=== PATIENT | male | born 1965 | race Caucasian/White ===

== ENCOUNTER 2019-11-20 12:08 | Emergency (ER) | payer MEDICARE ==
[~2019-11-20] VITALS: Ht 180.3 cm; Wt 94.4 kg
[2019-11-20] MEDS ORDERED: SODIUM CHLORIDE 0.9% 1,000ML IVBOLUS ONE (12:30)
[2019-11-20] MEDS ORDERED: THIAMINE 100 MG in SODIUM CHLORIDE 0.9% 50 ML IVPB ONE (12:30)
[2019-11-20] MEDS ORDERED: SODIUM CHLORIDE FLUSH 10ML SYR IVF ONE (12:30)
--- NOTE | 2019-11-20 12:33 | NUR ---
SEE TRIAGE. PT PLACED ON ALL ROOM MONITORING, EKG COMPLETED ON ARRIVAL TO ED. CALL LIGHT WITHIN REACH. LUIS A MONTAÑO IN TO SEE PT.
[2019-11-20 12:40] LABS: BASOPHILS # (AUTO) 0.07 x10^3/uL (0-0.1); BASOPHILS % (AUTO) 1 % (0-1); EOSINOPHILS # (AUTO) 0.04 x10^3/uL (0-0.4); EOSINOPHILS % (AUTO) 1 % (1-7); LYMPHOCYTES # (AUTO) 1.41 x10^3/uL (1-3.4); LYMPHOCYTES % (AUTO) 17 % (22-44); MD NO; MEAN CORPUSCULAR HEMOGLOBIN 32.8 pg (27.5-34.5); MEAN CORPUSCULAR HGB CONC 33.6 g/dL (33.2-36.2); MEAN CORPUSCULAR VOLUME 97.5 fL (81-97); MEAN PLATELET VOLUME 7.5 fL (7.4-10.4); MONOCYTES # (AUTO) 0.55 x10^3/uL (0.2-0.8); MONOCYTES % (AUTO) 7 % (2-9); NEUTROPHILS # (AUTO) 6.17 x10^3/uL (1.8-6.8); NEUTROPHILS % (AUTO) 75 % (42-75); PLATELET COUNT 249 x10^3/uL (130-400); RED BLOOD COUNT 5.09 x10^6/uL (4.38-5.82); RED CELL DISTRIBUTION WIDTH 14.9 % (9.4-14.8)
[2019-11-20 12:53] LABS: ALANINE AMINOTRANSFERASE 22 U/L (12-78); ALBUMIN 3.2 g/dL (3.4-5.0); ANION GAP 10 mmol/L (5-15); CALCIUM 8.8 mg/dL (8.5-10.1); CHLORIDE 104 mmol/L (98-107); CREATININE 1.06 mg/dL (0.7-1.3)
[2019-11-20] MEDS ORDERED: LORazepam 2 MG/ML, 1ML ONE (12:57)
[2019-11-20] MEDS ORDERED: THIAMINE 100 MG/ML, 2ML ONE (12:57)
[2019-11-20 13:00] LABS: ALKALINE PHOSPHATASE 80 U/L (45-117); BILIRUBIN,TOTAL 0.6 mg/dL (0.2-1.0); TOTAL PROTEIN 6.5 g/dL (6.4-8.2)
[2019-11-20] MEDS: LORazepam 2 MG/ML, 1ML IVPush PRN ×2 (13:30→14:03)
[2019-11-20] MEDS ORDERED: DULOXETINE 30 MG CAPSULE.DR PO ONE (13:30)
--- NOTE | 2019-11-20 13:41 | NUR ---
MEDS GIVEN PER ERP ORDER. IVF INFUSING. VS UPDATED IN COMPUTER. PT 155/112. CONTINUE TO MONITOR.
--- NOTE | 2019-11-20 14:03 | NUR ---
TREMORS DECREASED SLIGHTLY. ARM WITH IV REPOSITIONED FOR NS BOLUS TO INFUSE QUICKER. PT STILL HYPERTENSIVE. 2ND DOSE OF ATIVAN GIVEN. CONTINUE TO MONITOR AND ASSESS FOR DISCHARGE.
[2019-11-20 14:25] VITALS: BP 158/94
== END 2019-11-20 14:30 | disposition home or self-care (01) ==
LOC: ED 13:30
DX: F32.9 Major depressive disorder, single episode, unspecified (principal); F10.239 Alcohol dependence with withdrawal, unspecified; I48.91 Unspecified atrial fibrillation; Y90.9 Presence of alcohol in blood, level not specified
CPT/HCPCS: 36415; 80053; 83735; 85025; 93005; 96365; 96375; 96376; 99284; J2060; J3411; J7030